=== PATIENT | female | born 1955 | race Caucasian/White ===

== ENCOUNTER 2020-07-09 12:55 | Emergency (ER) | payer OTHER ==
[~2020-07-09] VITALS: Ht 160 cm; Wt 109.1 kg
[2020-07-09] MEDS ORDERED: HYDROcodone/acetaminophen 10/325mg tab PO ONE (13:25)
[2020-07-09] MEDS ORDERED: HYDR-3965 PO (16:23)
[2020-07-09] MEDS ORDERED: NAPR-56 PO (16:23)
[2020-07-09 16:36] VITALS: BP 161/75
== END 2020-07-09 16:51 | disposition home or self-care (01) ==
LOC: ER 12:56
DX: M23.8X2 Other internal derangements of left knee (principal); Z88.0 Allergy status to penicillin; Z79.899 Other long term (current) drug therapy
CPT/HCPCS: 29505; 73560; 99284